=== PATIENT | male | born 1985 | race Native Hawaiian/Other Pacific Islander ===

== ENCOUNTER 2017-12-08 11:12 | Emergency (ER) | payer BC ==
[~2017-12-08] VITALS: Ht 175.3 cm; Wt 63.5 kg
[2017-12-08 11:18] VITALS: TEMP 98.6
[2017-12-08 11:59] LABS: PLATELET COUNT 235 K/uL (142-355)
[2017-12-08 12:13] LABS: POTASSIUM 4.3 mmol/L (3.6-5.2)
[2017-12-08 13:09] VITALS: BP 132/70
== END 2017-12-08 13:09 | disposition home or self-care (01) ==
LOC: ED 11:12
DX: J04.0 Acute laryngitis (principal); J40 Bronchitis, not specified as acute or chronic
CPT/HCPCS: 36415; 80053; 85027; 87081; 87804; 87880; 99283